=== PATIENT | male | born 1945 | race Caucasian/White ===

== ENCOUNTER 2022-02-26 10:35 | Inpatient (IN) ==
[2022-02-26 11:29] LABS: Basophils # 0.1 10*3/uL (0.0-0.2); Eosinophils # 0.2 10*3/uL (0.0-0.87); Eosinophils % 2.7 % (0.00-10.9); Hematocrit 41.8 VOL% (42.0-52.0); Hemoglobin 13.5 GM/DL (14.0-18.0); Immature Granulocytes % 0.3 %; Immature Granulocytes Absolute 0.03 #; Lymphocytes # 0.9 10*3/uL (1.4-4.0); Lymphocytes % 10.4 % (21.2-54.2); Mean Corpuscular HGB Conc 32.3 GM/DL (32-36); Mean Corpuscular Volume 92.1 FL (87-102); Mean Platelet Volume 11.4 FL (9.6-12.0); Monocytes # 0.4 10*3/uL (0.11-0.8); Monocytes % 4.8 % (1.7-12.7); Neutrophils % 80.8 % (38.7-73.9); Platelet Count 244 T/CUMM (130-400); Red Blood Count 4.54 MC/CUMM (3.8-5.5); Red Cell Distribution Width 15.4 % (9.3-17.3); White Blood Count 8.8 T/CUMM (4-12)
[2022-02-26 11:41] LABS: Albumin 3.8 G/DL (3.4-5.0); Bilirubin,Total 0.4 MG/DL (0.20-1.00); Calcium 9.4 MG/DL (8.5-10.1); Potassium 4.7 MMOL/L (3.5-5.1); Total Protein 6.8 G/DL (6.4-8.2)
[2022-02-26] MEDS ORDERED: ONDANSETRON 4 MG/2 ML VIAL IV PRN (14:49)
[2022-02-26] MEDS ORDERED: DOCUSATE SODIUM 100 MG CAPSULE PO PRN (14:49)
[2022-02-26] MEDS ORDERED: NICOTINE 21 MG/24 HR PATCH TRANSDERM PRN (14:49)
[2022-02-26] MEDS ORDERED: LABETALOL 20 MG/4 ML SYRINGE IV PRN (14:54)
[2022-02-26] MEDS ORDERED: ASPIRIN 300 MG SUPP RECTAL STA (14:56)
[2022-02-26 16:37] LABS: Risk Ratio 2.8; Thyroid Stimulating Hormone 0.692 uIU/ml (0.358-3.74); VLDL Cholesterol 9.6 MG/DL
[2022-02-26] MEDS ORDERED: ASPIRIN CHEW 81 MG TABLET PO STA (16:41)
[2022-02-26] MEDS ORDERED: ASPIRIN 325 MG TABLET ONE (17:15)
[2022-02-26] MEDS: ENOXAPARIN 40 MG/0.4 ML SYRINGE SUBCUT SCH (17:17)
[2022-02-27 03:32] LABS: Basophils # 0.1 10*3/uL (0.0-0.2); Basophils % 0.8 % (0.0-0.8); Eosinophils # 0.3 10*3/uL (0.0-0.87); Eosinophils % 3.1 % (0.00-10.9); Hemoglobin 13.1 GM/DL (14.0-18.0); Immature Granulocytes % 0.6 %; Immature Granulocytes Absolute 0.05 #; Lymphocytes # 1.5 10*3/uL (1.4-4.0); Lymphocytes % 17.6 % (21.2-54.2); Mean Corpuscular Volume 92.3 FL (87-102); Mean Platelet Volume 11.4 FL (9.6-12.0); Monocytes # 0.6 10*3/uL (0.11-0.8); Monocytes % 7.5 % (1.7-12.7); Neutrophils % 70.4 % (38.7-73.9); Platelet Count 215 T/CUMM (130-400); Red Blood Count 4.44 MC/CUMM (3.8-5.5); Red Cell Distribution Width 15.1 % (9.3-17.3); White Blood Count 8.4 T/CUMM (4-12)
[2022-02-27 03:51] LABS: Calcium 9.2 MG/DL (8.5-10.1); Potassium 3.8 MMOL/L (3.5-5.1)
[2022-02-27] MEDS ORDERED: ASPIRIN CHEW 81 MG TABLET PO SCH (09:00)
[2022-02-27] MEDS ORDERED: ZALEPLON 5 MG CAPSULE PO PRN (11:44)
[2022-02-27] MEDS ORDERED: SIMVASTATIN 40 MG TABLET PO SCH (12:00)
[2022-02-27] MEDS ORDERED: ASPIRIN CHEW 81 MG TABLET PO ONE (12:17)
[2022-02-27] MEDS: ATORVASTATIN 80 MG TABLET PO SCH (12:46)
[2022-02-27] MEDS: traMADol 50 MG TABLET PO PRN (12:46)
[2022-02-27] MEDS: ENOXAPARIN 40 MG/0.4 ML SYRINGE SUBCUT SCH (15:21)
[2022-02-27] MEDS ORDERED: SIMVASTATIN 20 MG TABLET PO SCH (21:00)
[2022-02-27] MEDS: PREGABALIN 75 MG CAPSULE PO SCH (21:27)
[2022-02-27] MEDS: FERROUS SULFATE 325 MG TABLET PO SCH (21:28)
[2022-02-27] MEDS: carvediloL 6.25 MG TABLET PO SCH (21:28)
[2022-02-27] MEDS: EZETIMIBE 10 MG TABLET PO SCH (21:28)
[2022-02-28 07:40] LABS: Basophils # 0.1 10*3/uL (0.0-0.2); Basophils % 0.9 % (0.0-0.8); Eosinophils # 0.2 10*3/uL (0.0-0.87); Eosinophils % 2.4 % (0.00-10.9); Hematocrit 45.3 VOL% (42.0-52.0); Hemoglobin 14.5 GM/DL (14.0-18.0); Immature Granulocytes % 0.5 %; Immature Granulocytes Absolute 0.05 #; Lymphocytes # 1.3 10*3/uL (1.4-4.0); Lymphocytes % 13.6 % (21.2-54.2); Mean Corpuscular Volume 91.5 FL (87-102); Mean Platelet Volume 11.8 FL (9.6-12.0); Monocytes # 0.8 10*3/uL (0.11-0.8); Monocytes % 7.7 % (1.7-12.7); Neutrophils % 74.9 % (38.7-73.9); Platelet Count 249 T/CUMM (130-400); Red Blood Count 4.95 MC/CUMM (3.8-5.5); Red Cell Distribution Width 15.3 % (9.3-17.3); White Blood Count 9.9 T/CUMM (4-12)
[2022-02-28 08:02] LABS: Albumin 3.9 G/DL (3.4-5.0); Bilirubin,Total 0.8 MG/DL (0.20-1.00); Calcium 10.3 MG/DL (8.5-10.1); Osmolality,Calculated 281.4 MOS/KG (273-304); Potassium 3.9 MMOL/L (3.5-5.1)
[2022-02-28] MEDS: ASPIRIN CHEW 81 MG TABLET PO SCH (09:58)
[2022-02-28] MEDS: ATORVASTATIN 80 MG TABLET PO SCH (09:58)
[2022-02-28] MEDS: VALSARTAN 80 MG TABLET PO SCH (09:58)
[2022-02-28] MEDS: MULTIVITAMIN (CENTRUM) TABLET PO SCH (09:58)
[2022-02-28] MEDS: amLODIPine 10 MG TABLET PO SCH (09:59)
[2022-02-28] MEDS: carvediloL 6.25 MG TABLET PO SCH ×2 (09:59→21:55)
[2022-02-28] MEDS: CYANOCOBALAMIN 500 MCG TABLET PO SCH (09:59)
[2022-02-28] MEDS: PREGABALIN 75 MG CAPSULE PO SCH ×2 (09:59→21:55)
[2022-02-28] MEDS: LACTATED RINGERS 1,000 ML IV SCH ×2 (12:13→21:58)
[2022-02-28] MEDS ORDERED: PANTOPRAZOLE 40 MG TABLET PO SCH (12:30)
[2022-02-28] MEDS: CALCIUM CARBONATE CHEW 500 MG TABLET PO PRN (14:24)
[2022-02-28] MEDS: traMADol 50 MG TABLET PO PRN (14:24)
[2022-02-28] MEDS: PANTOPRAZOLE 40 MG VIAL IV SCH (14:29)
[2022-02-28] MEDS ORDERED: SODIUM CHLORIDE 0.9% 1,000 ML IV SCH (15:30)
[2022-02-28] MEDS: ENOXAPARIN 40 MG/0.4 ML SYRINGE SUBCUT SCH (16:00)
[2022-02-28] MEDS: HYDROcod/ACETAMIN 7.5-325 MG/15 ML UDCUP PO PRN (17:11)
[2022-02-28] MEDS: EZETIMIBE 10 MG TABLET PO SCH (21:55)
[2022-02-28] MEDS: FERROUS SULFATE 325 MG TABLET PO SCH (21:55)
[2022-03-01] MEDS: LACTATED RINGERS 1,000 ML IV SCH ×2 (07:02→18:45)
[2022-03-01 07:45] LABS: Calcium 9.6 MG/DL (8.5-10.1); Osmolality,Calculated 284.3 MOS/KG (273-304); Potassium 3.8 MMOL/L (3.5-5.1)
[2022-03-01] MEDS: CALCIUM CARBONATE CHEW 500 MG TABLET PO PRN (10:47)
[2022-03-01] MEDS: ASPIRIN CHEW 81 MG TABLET PO SCH (10:48)
[2022-03-01] MEDS: PREGABALIN 75 MG CAPSULE PO SCH ×2 (10:48→21:51)
[2022-03-01] MEDS: amLODIPine 10 MG TABLET PO SCH (10:49)
[2022-03-01] MEDS: ATORVASTATIN 80 MG TABLET PO SCH (10:49)
[2022-03-01] MEDS: CYANOCOBALAMIN 500 MCG TABLET PO SCH (10:49)
[2022-03-01] MEDS: VALSARTAN 80 MG TABLET PO SCH (10:49)
[2022-03-01] MEDS: traMADol 50 MG TABLET PO SCH ×3 (10:49→21:51)
[2022-03-01] MEDS: MULTIVITAMIN (CENTRUM) TABLET PO SCH (10:49)
[2022-03-01] MEDS: PANTOPRAZOLE 40 MG VIAL IV SCH (10:50)
[2022-03-01] MEDS: FLUTICASONE 50 MCG NASAL SPRAY 16 GM BOTTLE BOTH NARES SCH ×2 (11:03→22:12)
[2022-03-01] MEDS: carvediloL 6.25 MG TABLET PO SCH (11:03)
[2022-03-01] MEDS ORDERED: PANTOPRAZOLE 40 MG VIAL IV SCH (13:19)
[2022-03-01] MEDS: carvediloL 3.125 MG TABLET PO SCH ×2 (15:39→21:51)
[2022-03-01] MEDS: ENOXAPARIN 40 MG/0.4 ML SYRINGE SUBCUT SCH (16:25)
[2022-03-01 19:31] LABS: Urine Appearance Clear (Clear); Urine Color Yellow (Yellow)
[2022-03-01 19:32] LABS: Bilirubin,Urine Negative (Negative); Blood, Urine Trace mg/dL (Negative); Glucose,Urine (UA) Negative (Negative); Ketones,Urine Negative (Negative); Nitrite,Urine Negative (Negative); Protein,Urine Negative (Negative); Urine Urobilinogen 0.2 eU/dL (<2.0)
[2022-03-01 19:35] LABS: Bacteria,Urine Occasional /HPF (Few); Mucus,Urine Occasional /LPF (Occasional); RBC,Urine 6 /HPF (0-4); Squamous Epithelial Cell,Urine Occasional /HPF (0-10)
[2022-03-01] MEDS: FERROUS SULFATE 325 MG TABLET PO SCH (21:51)
[2022-03-01] MEDS: EZETIMIBE 10 MG TABLET PO SCH (21:51)
[2022-03-02] MEDS: traMADol 50 MG TABLET PO SCH ×4 (04:58→21:25)
[2022-03-02] MEDS: LACTATED RINGERS 1,000 ML IV SCH (04:58)
[2022-03-02] MEDS: CALCIUM CARBONATE CHEW 500 MG TABLET PO PRN (09:50)
[2022-03-02] MEDS: CYANOCOBALAMIN 500 MCG TABLET PO SCH (09:50)
[2022-03-02] MEDS: ASPIRIN CHEW 81 MG TABLET PO SCH (09:50)
[2022-03-02] MEDS: MULTIVITAMIN (CENTRUM) TABLET PO SCH (09:50)
[2022-03-02] MEDS: PREGABALIN 75 MG CAPSULE PO SCH ×2 (09:51→21:25)
[2022-03-02] MEDS: carvediloL 3.125 MG TABLET PO SCH ×2 (09:51→21:25)
[2022-03-02] MEDS: VALSARTAN 80 MG TABLET PO SCH (09:51)
[2022-03-02] MEDS: amLODIPine 10 MG TABLET PO SCH (09:51)
[2022-03-02] MEDS: FLUTICASONE 50 MCG NASAL SPRAY 16 GM BOTTLE BOTH NARES SCH ×2 (09:51→21:25)
[2022-03-02] MEDS: ATORVASTATIN 80 MG TABLET PO SCH (09:51)
[2022-03-02] MEDS: PANTOPRAZOLE 40 MG VIAL IV SCH (09:52)
[2022-03-02] MEDS: POLYETHYLENE GLYCOL POWDER 17 GM PACK PO SCH (15:37)
[2022-03-02] MEDS: FERROUS SULFATE 325 MG TABLET PO SCH (21:25)
[2022-03-02] MEDS: EZETIMIBE 10 MG TABLET PO SCH (21:25)
[2022-03-03] MEDS: traMADol 50 MG TABLET PO SCH ×3 (04:58→21:39)
[2022-03-03 06:17] LABS: Basophils # 0.1 10*3/uL (0.0-0.2); Basophils % 0.7 % (0.0-0.8); Eosinophils # 0.6 10*3/uL (0.0-0.87); Eosinophils % 5.4 % (0.00-10.9); Hematocrit 38.3 VOL% (42.0-52.0); Hemoglobin 12.6 GM/DL (14.0-18.0); Immature Granulocytes % 0.6 %; Immature Granulocytes Absolute 0.06 #; Lymphocytes # 1.1 10*3/uL (1.4-4.0); Lymphocytes % 10.2 % (21.2-54.2); Mean Corpuscular HGB Conc 32.9 GM/DL (32-36); Mean Corpuscular Volume 90.1 FL (87-102); Mean Platelet Volume 11.9 FL (9.6-12.0); Monocytes # 0.7 10*3/uL (0.11-0.8); Monocytes % 6.2 % (1.7-12.7); Neutrophils % 76.9 % (38.7-73.9); Platelet Count 186 T/CUMM (130-400); Red Blood Count 4.25 MC/CUMM (3.8-5.5); Red Cell Distribution Width 14.7 % (9.3-17.3); White Blood Count 10.6 T/CUMM (4-12)
[2022-03-03 06:42] LABS: Albumin 3.5 G/DL (3.4-5.0); Bilirubin,Total 0.6 MG/DL (0.20-1.00); Calcium 9.5 MG/DL (8.5-10.1); Potassium 3.9 MMOL/L (3.5-5.1); Total Protein 6.1 G/DL (6.4-8.2)
[2022-03-03] MEDS: LACTATED RINGERS 1,000 ML IV SCH (08:43)
[2022-03-03] MEDS: VALSARTAN 80 MG TABLET PO SCH (08:48)
[2022-03-03] MEDS: carvediloL 3.125 MG TABLET PO SCH ×2 (08:49→21:39)
[2022-03-03] MEDS: amLODIPine 10 MG TABLET PO SCH (08:49)
[2022-03-03] MEDS: PANTOPRAZOLE 40 MG VIAL IV SCH (08:52)
[2022-03-03] MEDS: FLUTICASONE 50 MCG NASAL SPRAY 16 GM BOTTLE BOTH NARES SCH ×2 (08:58→21:39)
[2022-03-03] MEDS ORDERED: LIDOCAINE 2% 5 ML VIAL ONE (11:11)
[2022-03-03] MEDS ORDERED: propofoL 200 MG/20 ML VIAL IV ONE (11:11)
[2022-03-03] MEDS: ASPIRIN CHEW 81 MG TABLET PO SCH (13:26)
[2022-03-03] MEDS: MULTIVITAMIN (CENTRUM) TABLET PO SCH (13:27)
[2022-03-03] MEDS: PREGABALIN 75 MG CAPSULE PO SCH ×2 (13:27→21:39)
[2022-03-03] MEDS: CYANOCOBALAMIN 500 MCG TABLET PO SCH (13:27)
[2022-03-03] MEDS: ATORVASTATIN 80 MG TABLET PO SCH (13:27)
[2022-03-03] MEDS: POLYETHYLENE GLYCOL POWDER 17 GM PACK PO SCH (13:28)
[2022-03-03] MEDS: HYDROcod/ACETAMIN 7.5-325 MG/15 ML UDCUP PO PRN (17:10)
[2022-03-03] MEDS: EZETIMIBE 10 MG TABLET PO SCH (21:39)
[2022-03-03] MEDS: FERROUS SULFATE 325 MG TABLET PO SCH (21:39)
[2022-03-04] MEDS: traMADol 50 MG TABLET PO SCH ×3 (02:52→14:12)
[2022-03-04] MEDS: LACTATED RINGERS 1,000 ML IV SCH (07:36)
[2022-03-04] MEDS: FLUTICASONE 50 MCG NASAL SPRAY 16 GM BOTTLE BOTH NARES SCH (08:27)
[2022-03-04] MEDS: POLYETHYLENE GLYCOL POWDER 17 GM PACK PO SCH (08:28)
[2022-03-04] MEDS: amLODIPine 10 MG TABLET PO SCH (08:31)
[2022-03-04] MEDS: ASPIRIN CHEW 81 MG TABLET PO SCH (08:31)
[2022-03-04] MEDS: MULTIVITAMIN (CENTRUM) TABLET PO SCH (08:31)
[2022-03-04] MEDS: PANTOPRAZOLE 40 MG VIAL IV SCH (08:31)
[2022-03-04] MEDS: carvediloL 3.125 MG TABLET PO SCH (08:31)
[2022-03-04] MEDS: ATORVASTATIN 80 MG TABLET PO SCH (08:32)
[2022-03-04] MEDS: VALSARTAN 80 MG TABLET PO SCH (08:32)
[2022-03-04] MEDS: CYANOCOBALAMIN 500 MCG TABLET PO SCH (08:32)
[2022-03-04] MEDS: PREGABALIN 75 MG CAPSULE PO SCH (08:39)
[2022-03-04 12:43] VITALS: BP 116/64
== END 2022-03-04 15:50 | disposition home health service (06) | DRG 884 ==
LOC: N.ED 10:35 → N.EDINP 10:35 → SUATTDRO 14:49 → N.TELES 16:50 → SUATTDRO 02-28 09:58
PROVIDERS: ADMIT Internal Medicine; ATTEND Internal Medicine
PROC: EGDWPEG (ICD-10-PCS; 2022-03-03 07:05)

== ENCOUNTER 2022-03-06 | Inpatient (IN) ==
[2022-03-06 00:58] LABS: Basophils # 0.1 10*3/uL (0.0-0.2); Basophils % 0.5 % (0.0-0.8); Eosinophils # 0.5 10*3/uL (0.0-0.87); Eosinophils % 4.3 % (0.00-10.9); Hematocrit 41.1 VOL% (42.0-52.0); Hemoglobin 13.5 GM/DL (14.0-18.0); Immature Granulocytes % 0.9 %; Immature Granulocytes Absolute 0.11 #; Lymphocytes # 1.6 10*3/uL (1.4-4.0); Lymphocytes % 13.5 % (21.2-54.2); Mean Corpuscular HGB Conc 32.8 GM/DL (32-36); Mean Corpuscular Volume 89.9 FL (87-102); Mean Platelet Volume 12.4 FL (9.6-12.0); Monocytes # 0.6 10*3/uL (0.11-0.8); Monocytes % 5.2 % (1.7-12.7); Neutrophils % 75.6 % (38.7-73.9); Platelet Count 250 T/CUMM (130-400); Red Blood Count 4.57 MC/CUMM (3.8-5.5); Red Cell Distribution Width 15.1 % (9.3-17.3); White Blood Count 11.8 T/CUMM (4-12)
[2022-03-06 01:09] LABS: Albumin 3.7 G/DL (3.4-5.0); Bilirubin,Total 0.6 MG/DL (0.20-1.00); Calcium 9.4 MG/DL (8.5-10.1); Osmolality,Calculated 290.7 MOS/KG (273-304); Potassium 3.3 MMOL/L (3.5-5.1)
[2022-03-06] MEDS ORDERED: KETOROLAC 30 MG/1 ML VIAL IV STA (01:24)
[2022-03-06] MEDS ORDERED: PROMETHAZINE 25 MG/1 ML VIAL IM STA (01:24)
[2022-03-06 01:52] LABS: PT Patient Result 10.9 SECS (10.1-12.1); Partial Thromboplastin Time 35.3 SECS (23.7-32.9)
[2022-03-06] MEDS ORDERED: SODIUM CHLORIDE 0.9% 500 ML IV ONE (04:34)
[2022-03-06] MEDS ORDERED: NICOTINE 21 MG/24 HR PATCH TRANSDERM PRN (04:36)
[2022-03-06] MEDS ORDERED: hydrALAZINE 20 MG/1 ML VIAL IV PRN (04:36)
[2022-03-06] MEDS ORDERED: MORPHINE 2 MG/1 ML SYRINGE IV PRN (04:36)
[2022-03-06] MEDS ORDERED: ACETAMINOPHEN 325 MG TABLET PO PRN (04:36)
[2022-03-06] MEDS: LACTATED RINGERS 1,000 ML IV SCH ×2 (05:38→15:10)
[2022-03-06] MEDS: INSULIN LISPRO 100 UNIT/ML SUBCUT SCH ×3 (06:25→18:24)
[2022-03-06] MEDS: ASPIRIN 325 MG TABLET PEG SCH ×2 (07:46→08:07)
[2022-03-06] MEDS ORDERED: amLODIPine 10 MG TABLET PO SCH (09:00)
[2022-03-06] MEDS ORDERED: VALSARTAN 80 MG TABLET PO SCH (09:14)
[2022-03-06] MEDS: carvediloL 3.125 MG TABLET PO SCH ×2 (09:21→20:26)
[2022-03-06] MEDS: POTASSIUM CHLORIDE RIDER 10 MEQ/100 ML PREMIX IV SCH ×2 (09:21→10:22)
[2022-03-06] MEDS: ATORVASTATIN 80 MG TABLET PO SCH (09:22)
[2022-03-06] MEDS: amLODIPine 5 MG TABLET PO SCH (09:22)
[2022-03-06] MEDS: CYANOCOBALAMIN 500 MCG TABLET PO SCH (09:22)
[2022-03-06] MEDS: PANTOPRAZOLE 40 MG TABLET PO SCH (09:22)
[2022-03-06 11:57] LABS: Hyaline Casts,Urine 4 /LPF (0-3); Mucus,Urine Occasional /LPF (Occasional); RBC,Urine 5 /HPF (0-4)
[2022-03-06 12:00] LABS: Bilirubin,Urine Negative (Negative); Blood, Urine Trace mg/dL (Negative); Glucose,Urine (UA) Negative (Negative); Ketones,Urine Negative (Negative); Nitrite,Urine Negative (Negative); Protein,Urine Negative (Negative); Urine Appearance Clear (Clear); Urine Color Yellow (Yellow); Urine Specific Gravity 1.015 (1.001-1.035); Urine Urobilinogen 0.2 eU/dL (<2.0); Urine pH 5.5 (4.5-8.0)
[2022-03-06] MEDS ORDERED: VANCOMYCIN INJ 1,750 MG in SODIUM CHLORIDE 0.9% 500 ML IV ONE (12:00)
[2022-03-06] MEDS ORDERED: DIAZEPAM 5 MG TABLET PO ONE (12:40)
[2022-03-06] MEDS: AMPICILLIN INJ 2,000 MG in SODIUM CHLORIDE 0.9% 100 ML IV SCH ×3 (13:00→21:03)
[2022-03-06 13:01] LABS: Barbiturates Screen,Urine Negative (Negative); Benzodiazepines Screen,Urine Negative (Negative); Cannabinoid Screen,Urine Negative (Negative); Opiate Screen,Urine Negative (Negative); Phencyclidine Screen,Urine Negative (Negative)
[2022-03-06] MEDS: cefTRIAXone 2,000 MG in SODIUM CHLORIDE 0.9% 100 ML IV SCH ×2 (14:45→23:45)
[2022-03-06 15:10] LABS: Glucose,CSF 56 MG/DL (40-70)
[2022-03-06 16:02] LABS: Lymphocytes,CSF 100 %
[2022-03-06 16:08] LABS: Appearance,CSF Clear; Red Blood Cell,CSF 2 C/CUMM; White Blood Cell,CSF 7 C/CUMM
[2022-03-06] MEDS: SERTRALINE 50 MG TABLET PO SCH (20:26)
[2022-03-06] MEDS: FERROUS SULFATE 325 MG TABLET PO SCH (20:26)
[2022-03-06] MEDS: EZETIMIBE 10 MG TABLET PO SCH (20:26)
[2022-03-06] MEDS: ENOXAPARIN 40 MG/0.4 ML SYRINGE SUBCUT SCH (20:27)
[2022-03-07] MEDS: INSULIN LISPRO 100 UNIT/ML SUBCUT SCH ×4 (00:09→17:19)
[2022-03-07] MEDS: AMPICILLIN INJ 2,000 MG in SODIUM CHLORIDE 0.9% 100 ML IV SCH (03:24)
[2022-03-07] MEDS: LACTATED RINGERS 1,000 ML IV SCH ×2 (03:25→16:53)
[2022-03-07 05:16] LABS: Basophils # 0.1 10*3/uL (0.0-0.2); Basophils % 0.6 % (0.0-0.8); Eosinophils # 0.6 10*3/uL (0.0-0.87); Eosinophils % 5.9 % (0.00-10.9); Hematocrit 36.7 VOL% (42.0-52.0); Hemoglobin 11.9 GM/DL (14.0-18.0); Immature Granulocytes % 0.9 %; Immature Granulocytes Absolute 0.09 #; Lymphocytes # 0.9 10*3/uL (1.4-4.0); Lymphocytes % 9.4 % (21.2-54.2); Mean Corpuscular HGB Conc 32.4 GM/DL (32-36); Mean Corpuscular Volume 91.8 FL (87-102); Mean Platelet Volume 12.3 FL (9.6-12.0); Monocytes # 0.7 10*3/uL (0.11-0.8); Monocytes % 7.3 % (1.7-12.7); Neutrophils % 75.9 % (38.7-73.9); Platelet Count 213 T/CUMM (130-400); Red Cell Distribution Width 14.9 % (9.3-17.3); White Blood Count 9.8 T/CUMM (4-12)
[2022-03-07 05:45] LABS: Phosphorous 3.2 MG/DL (2.5-4.9)
[2022-03-07 05:46] LABS: Osmolality,Calculated 295.6 MOS/KG (273-304); Potassium 4.6 MMOL/L (3.5-5.1)
[2022-03-07] MEDS ORDERED: cefTRIAXone 1,000 MG VIAL IM SCH (08:30)
[2022-03-07] MEDS: PANTOPRAZOLE 40 MG TABLET PO SCH (11:33)
[2022-03-07] MEDS: ATORVASTATIN 80 MG TABLET PO SCH (11:33)
[2022-03-07] MEDS: ASPIRIN 325 MG TABLET PEG SCH (11:33)
[2022-03-07] MEDS: carvediloL 3.125 MG TABLET PO SCH ×2 (11:33→21:35)
[2022-03-07] MEDS: amLODIPine 5 MG TABLET PO SCH (11:33)
[2022-03-07] MEDS: CYANOCOBALAMIN 500 MCG TABLET PO SCH (11:34)
[2022-03-07] MEDS ORDERED: VANCOMYCIN INJ 1,250 MG in SODIUM CHLORIDE 0.9% 250 ML IV SCH (12:00)
[2022-03-07] MEDS ORDERED: cefTRIAXone 2,000 MG in SODIUM CHLORIDE 0.9% 100 ML IV SCH (21:00)
[2022-03-07] MEDS: FERROUS SULFATE 325 MG TABLET PO SCH (21:35)
[2022-03-07] MEDS: EZETIMIBE 10 MG TABLET PO SCH (21:35)
[2022-03-07] MEDS: PREGABALIN 75 MG CAPSULE PO SCH (21:35)
[2022-03-07] MEDS: SERTRALINE 50 MG TABLET PO SCH (21:35)
[2022-03-07] MEDS: ENOXAPARIN 40 MG/0.4 ML SYRINGE SUBCUT SCH (21:37)
[2022-03-08] MEDS: INSULIN LISPRO 100 UNIT/ML SUBCUT SCH ×2 (02:36→06:16)
[2022-03-08] MEDS: LACTATED RINGERS 1,000 ML IV SCH (03:13)
[2022-03-08 08:24] VITALS: BP 152/100
[2022-03-08] MEDS: carvediloL 3.125 MG TABLET PO SCH (08:37)
[2022-03-08] MEDS: ATORVASTATIN 80 MG TABLET PO SCH (08:37)
[2022-03-08] MEDS: PANTOPRAZOLE 40 MG TABLET PO SCH (08:38)
[2022-03-08] MEDS: CYANOCOBALAMIN 500 MCG TABLET PO SCH (08:38)
[2022-03-08] MEDS: ASPIRIN 325 MG TABLET PEG SCH (08:38)
[2022-03-08] MEDS: PREGABALIN 75 MG CAPSULE PO SCH (08:38)
[2022-03-08] MEDS: amLODIPine 5 MG TABLET PO SCH (08:38)
[2022-03-08] MEDS ORDERED: TRAMADOL 300 MG PO SCH (09:00)
[2022-03-08] MEDS ORDERED: CEFUROXIME 500 MG TABLET PO SCH (09:30)
== END 2022-03-08 11:21 | disposition home health service (06) | DRG 65 ==
LOC: N.ED → N.EDINP 04:36 → N.5E 06:26
PROVIDERS: ADMIT Emergency Medicine; ATTEND Emergency Medicine